=== PATIENT | female | born 1995 | race Hispanic/Latino ===

== ENCOUNTER 2018-11-04 14:50 | Emergency (ER) | payer OTHER ==
[2018-11-04] MEDS ORDERED: KETOROLAC TROMETHAMINE 30MG/ML ONE (15:35)
[2018-11-04] MEDS ORDERED: CYCLOBENZAPRINE HCL 10 MG TABLET ONE (15:35)
== END 2018-11-04 16:11 | disposition home or self-care (01) ==
LOC: EDH 14:50
DX: S63.8X2A Sprain of other part of left wrist and hand, initial encounter (principal); J45.909 Unspecified asthma, uncomplicated; V49.49XA Driver injured in collision with other motor vehicles in traffic accident, initial encounter; Y93.89 Activity, other specified; Y92.89 Other specified places as the place of occurrence of the external cause; Y99.8 Other external cause status
CPT/HCPCS: 96372; 99283; J1885